=== PATIENT | female | born 1950 | race Caucasian/White ===

== ENCOUNTER → 2023-12-14 06:29 | Outpatient (REF) | payer OTHER, SELFPAY | LOC: HWRAD 06:29 | PROVIDERS: ATTENDING PHYSICIAN Family Medicine | DX: R10.11 Right upper quadrant pain (principal) | CPT/HCPCS: 76700 ==

== ENCOUNTER → 2023-12-31 11:02 | Outpatient (REF) | payer OTHER, SELFPAY | LOC: HWRAD 11:02 | PROVIDERS: ATTENDING PHYSICIAN Family Medicine | DX: R10.11 Right upper quadrant pain (principal) | CPT/HCPCS: 74177; Q9967 ==

== ENCOUNTER → 2024-05-26 10:50 | Outpatient (REF) | payer OTHER, SELFPAY | LOC: RAD 10:50 | PROVIDERS: ATTENDING PHYSICIAN Family Medicine | DX: R09.89 Other specified symptoms and signs involving the circulatory and respiratory systems (principal); Z01.818 Encounter for other preprocedural examination; H25.11 Age-related nuclear cataract, right eye; E11.69 Type 2 diabetes mellitus with other specified complication; E78.5 Hyperlipidemia, unspecified; E55.9 Vitamin D deficiency, unspecified; I10 Essential (primary) hypertension; R91.8 Other nonspecific abnormal finding of lung field | CPT/HCPCS: 93880 ==

== ENCOUNTER → 2024-05-30 09:58 | Outpatient (REF) | payer OTHER, SELFPAY | LOC: HWRAD 09:58 | PROVIDERS: ATTENDING PHYSICIAN Family Medicine | DX: Z87.891 Personal history of nicotine dependence (principal) | CPT/HCPCS: 71271 ==

== ENCOUNTER → 2024-08-15 10:56 | Outpatient (REF) | payer OTHER, SELFPAY | LOC: HWWDC 10:56 | PROVIDERS: ATTENDING PHYSICIAN Family Medicine | DX: Z12.31 Encounter for screening mammogram for malignant neoplasm of breast (principal) | CPT/HCPCS: 77063; 77067 ==

== ENCOUNTER → 2024-08-24 10:05 | Outpatient (REF) | payer OTHER, SELFPAY | LOC: RAD 10:05 | PROVIDERS: ATTENDING PHYSICIAN Emergency Medicine; FAMILY PHYSICIAN Family Medicine | DX: J06.9 Acute upper respiratory infection, unspecified (principal) | CPT/HCPCS: 71046 ==

== ENCOUNTER → 2024-11-30 07:59 | Outpatient (REF) | payer OTHER, SELFPAY | LOC: HWRAD 07:59 | PROVIDERS: ATTENDING PHYSICIAN Obstetrics & Gynecology; FAMILY PHYSICIAN Family Medicine | DX: N95.0 Postmenopausal bleeding (principal) | CPT/HCPCS: 76830; 76856 ==

== ENCOUNTER 2024-12-05 06:21 | Day surgery (SDC) | payer OTHER, SELFPAY ==
[2024-12-05 08:45] LABS: Glucose - Point of Care 105 mg/dl (70-99)
== END 2024-12-05 10:15 | disposition home or self-care (01) ==
LOC: GI 06:21
PROVIDERS: ATTENDING PHYSICIAN Surgery
DX: Z12.11 Encounter for screening for malignant neoplasm of colon (principal); K57.30 Diverticulosis of large intestine without perforation or abscess without bleeding; D12.4 Benign neoplasm of descending colon; D12.3 Benign neoplasm of transverse colon; K63.5 Polyp of colon; Z86.0100 Personal history of colon polyps, unspecified
CPT/HCPCS: 45385; 45380; 88305; 82962

== ENCOUNTER 2025-03-27 17:08 | Emergency (ER) | payer OTHER, SELFPAY ==
[2025-03-27] VITALS (8 sets, daily range): BP systolic 76–146; BP diastolic 54–74; PULSE 66–76; BMI 23.5
[2025-03-27 17:23] LABS: Hematocrit 41.2 % (37.0-47.0); Hemoglobin 14.1 g/dL (12.0-16.0); Mean Corp Hgb Conc. 34.2 g/dL (33.0-37.0); Mean Corpuscular Volume 89.4 fL (81.0-99.0); Nucleated Red Blood Cells % 0 %; Platelet Count 243 10^3/uL (130-400); Red Cell Dist. Width 13.3 % (11.5-14.5)
[2025-03-27 17:45] LABS: ALT (SGPT) 15 U/L (0-35); AST (SGOT) 20 U/L (14-36); Albumin 4.1 g/dl (3.5-5.0); Alkaline Phosphatase 55 U/L (38-126); Blood Urea Nitrogen 10 mg/dl (7-17); Calcium 9.3 mg/dl (8.4-10.2); Carbon Dioxide 25 mmol/L (22-30); Chloride 103 mmol/L (98-107); Glucose 135 mg/dl (70-99); Potassium 4.1 mmol/L (3.5-5.1); Sodium 134 mmol/L (135-145); Total Protein 6.7 g/dl (6.3-8.2); eGFR > 60.00
[2025-03-27 19:17] LABS: Lipase 321 U/L (23-300)
[2025-03-27 19:22] LABS: Urine Character Clear (Clear)
[2025-03-27] MEDS: NSS 1000 IV ×2 (19:44→21:33)
--- NOTE | 2025-03-27 22:49 | ED.GENMED ---
History of Present Illness
General
Chief Complaint: Abdominal Symptoms
Source: patient
Exam Limitations: none
Time Seen by Provider: 03/27/25 18:25
Nursing documentation reviewed up to this point in time: agreed with
History of Present Illness
History of Present Illness:
Patient to ED [facility] complaint of weakness, nausea, diarrhea. Symptoms startedyesterday. She denies fever/chills. Took immodium today and has had no further episodes of diarrhea. Denies abd. pain. Brought to ED by spouse
Past History
Past History
ED Past Medical History: GERD, HTN and Hypercholesterolemia
ED Past Surgical History: Other (hernia surgery, right facial bony tumor removal)
Social History
Tobacco: Former smoker
Alcohol: Occasional
Drug: None
Personal:
Living: with family
Employment: Employed
Family History
Family History: CAD
Review of Systems
Review of Systems
Allergies reviewed?: Yes
All Other Systems: ROS reviewed and negative except as documented in HPI and ROS
Constitutional: Reports no symptoms
EENT: Reports no symptoms
Respiratory: Reports no symptoms
Cardiac: Reports no symptoms
ABD/GI: Reports nausea and diarrhea
: Reports no symptoms
Musculoskeletal: Reports no symptoms
Skin: Reports no symptoms
Neurological: Reports no symptoms
Psychiatric: Reports no symptoms
Phy Exam
General Physical Exam
General Presentation: well appearing and no apparent distress
General age: appears stated age
General Skin: warm and dry
General Habitus: normal
Cardiovascular Exam
Cardiovascular Exam: regular rate/rhythm and no edema
Gastrointestinal Exam
Gastrointestinal Exam: normal bowel sounds, non tender, soft, no organomegaly, non distended and no cva tenderness
Musculoskeletal Exam
Musculoskeletal Exam: full ROM
Skin Exam
Skin Exam: normal color, warm/dry and no rash
Psychiatric Exam
Psychiatric Exam: normal mood/affect
Course
Orders/Labs/Results
Orders:
Orders
03/27/25 17:16
Complete Blood Count/With Diff Urgent
Comprehensive Metabolic Panel Urgent
Lipase Urgent
Comment: ADDON
03/27/25 18:45
Add On- LAB Urgent
Tests Added?: lipase
Orthostatic VS- Treatment ONCE
03/27/25 19:12
Urinalysis Reflex To Culture Urgent
Date Specimen was Collected: 03/27/25
Time Specimen was Collected: 19:11
03/27/25 19:37
0.9% Sodium Chloride 1000 ml [Nss] 1,000 ml IV BOLUS
03/27/25 21:15
0.9% Sodium Chloride 1000 ml [Nss] 1,000 ml IV BOLUS
Abnormal Lab Results
03/27/25
17:16
Absolute Monos (auto) 0.8 H 10^3/uL
(0.1-0.6)
Absolute Eos (auto) 1.3 H 10^3/uL
(0-0.7)
Eosinophils % 12.1 H %
(0-6)
Sodium 134 L mmol/L
(135-145)
Glucose 135 H mg/dl
(70-99)
Lipase 321 H U/L
(23-300)
03/27/25 17:16
03/27/25 17:16
Vital Signs
Initial and Last Documented VS:
Initial Vital Signs
Temp Pulse Resp BP Pulse Ox
98.3 F 76 18 146/72 96
03/27/25 17:10 03/27/25 17:10 03/27/25 17:10 03/27/25 17:10 03/27/25 17:10
Last Documented Vital Signs
Temp Pulse Resp BP Pulse Ox
98.3 F 80 20 118/74 100
03/27/25 17:10 03/27/25 22:04 03/27/25 22:04 03/27/25 22:04 03/27/25 22:04
*Radiology
Radiology exam reviewed: radiology read reviewed
*Pulse Oximetry
SaO2: 100
Oxygen Mode of Delivery: Room air
Patient hypoxic: no
*Critical Care Note
Total Time (30-74mins, 75-104mins- exclusive of procedures): Not Applicable
Update Note
Update Note:
Patient to ED with report of nausea and diarhea x 24 hours. Took immodium today and has had no further episodes of diarrhea. No abdominal pain. Labs reviewed, no concerning findings. BP low in ED. Given 2LNSS total in ED with resolution of
hypotension, SHe is tolerating po fluids, crackers in ED, WIll discharge home, close followup with PCP. Given instructions on s/s toreturn to ED and she is agreeable to plan.
ED Attending Note
-
Portions of this chart may have been created with voice recognition software.� Occasional wrong word or��sound alike� substitutions may have occurred due to the inherent limitations of voice recognition software.
Discharge Plan
Departure
Patient Disposition: Home (Routine Discharge)
Date of Disposition: 03/27/25
Time of Disposition: 22:29
Patient with high blood pressure during this ER visit?: No
Condition: Good
Covid-19: Not Applicable
Discharge Problem:
Diarrhea in adult patient
Instructions: Diarrhea in teens and adults, Clear Liquid Diet, Dehydration, Adult (DC)
Prescriptions:
No Action
valacyclovir 500 MG tablet
250 mg PO DAILY
diazepam 5 MG tablet
5 mg PO PRN PRN (Reason: anxiety)
omeprazole 20 MG capsule,delayed release(DR/EC)
20 mg PO DAILY
metoprolol succinate [Toprol XL] 25 MG tablet extended release 24 hr
25 mg PO DAILY
rosuvastatin 20 MG tablet
20 mg PO DAILY
cholecalciferol (vitamin D3) 2,000 UNITS tablet
2,000 units PO DAILY
levobunolol 1 DROP drops
1 drp BOTH EYES HS
lorazepam 0.5 MG tablet
0.5 mg PO BIDPRN PRN (Reason: anxiety)
Referrals:
Moo Luque DO [Family Provider, Family Practice]
Activity Restrictions/Additional Instructions:
REturn to the emergency department immediately for fever/chills, vomiting, abdominal pain or any further concerns.
Interventions
Interventions:
*Risk Screen - Suicide Last Done: 03/27/25 17:10
*General Assessment Last Done: 03/27/25 17:10
*Neglect/Abuse Screening Last Done: 03/27/25 17:10
*ED- Fall Risk Assessment Last Done: 03/27/25 19:00
*ED COVID-19 Vaccine History Last Done: 03/27/25 19:00
*Nursing Disposition Last Done: 03/27/25 22:47
IZ-Afdopy-Yplzuedakg Assessment Last Done: 03/27/25 19:01
Discharge Date and Time
Discharge Date/Time: 03/27/25 22:48
Print Language: ROMANIAN
== END 2025-03-27 22:48 | disposition home or self-care (01) ==
LOC: EMR 17:08
PROVIDERS: Nurse Practitioner; EMERGENCY PHYSICIAN Emergency Medicine; FAMILY PHYSICIAN Family Medicine
DX: R53.1 Weakness (principal); R11.0 Nausea; R19.7 Diarrhea, unspecified; K21.9 Gastro-esophageal reflux disease without esophagitis; I10 Essential (primary) hypertension; E78.00 Pure hypercholesterolemia, unspecified; Z82.49 Family history of ischemic heart disease and other diseases of the circulatory system; Z87.891 Personal history of nicotine dependence
CPT/HCPCS: 99282; 96360; 96361; 80053; 81003; 83690; 85025

== ENCOUNTER → 2025-05-04 08:43 | Outpatient (REF) | payer OTHER, SELFPAY | LOC: HWRAD 08:43 | PROVIDERS: ATTENDING PHYSICIAN Family Medicine | DX: R91.8 Other nonspecific abnormal finding of lung field (principal) | CPT/HCPCS: 71250 ==

== ENCOUNTER 2025-07-07 18:37 | Emergency (ER) | payer OTHER, SELFPAY ==
[2025-07-07 18:39] VITALS: BP 181/92
--- NOTE | 2025-07-07 19:06 | ED.GENMED ---
History of Present Illness
General
Chief Complaint: Fall
Source: patient and spouse
Exam Limitations: none
Time Seen by Provider: 07/07/25 18:50
Nursing documentation reviewed up to this point in time: agreed with
History of Present Illness
History of Present Illness:
Note:
CHIEF COMPLAINT(S)
Fall resulting in head injury and skin tear on the knee.
HISTORY OF PRESENT ILLNESS
The patient is a 74-year-old female who presented after a fall that occurred while she was outside, adjusting some lights. She states, 'I tripped over a cord outside and went down on the sidewalk.' During the fall, she sustained a significant
abrasion to her knee and reports hearing her head 'crack' upon impact with the ground. The patient describes the knee injury as a skin tear, which is significant but not amenable to sutures. She noted, 'It�s almost like a hole, isn�t it?' The
patient denies taking any anticoagulant medications. Concern arises for possible head injury given the reported audible crack and the mechanism of fall. The provider plans to perform a computed tomography (CT) scan of the head to assess for any
skull fracture or intracranial bleeding. The patient does not currently exhibit any overt neurological deficits as she was able to follow commands during the examination. The patient was provided an ice pack for the injury and it was noted that her
last tetanus shot might have been over five to ten years ago, and a booster is recommended if she cannot recall her last immunization.
PAST MEDICAL AND SURIGICAL HISTORY
The conversation did not reveal specific past medical or surgical history.
PHYSICAL EXAM
General: Alert, no acute distress.
Skin: Warm, dry. Knee with significant skin tear, described as a 'hole,' requiring bandaging; not suturable.
Head: Normocephalic, contusion right forehead.
Neck: Supple, trachea midline.
Eyes, Ears, Nose, Mouth, and Throat: Oral mucosa moist.
Cardiovascular: Normal peripheral perfusion, no edema.
Respiratory: Respirations are non-labored.
Gastrointestinal: Abdomen nondistended.
Back: Normal range of motion, normal alignment.
Musculoskeletal: Normal ROM, normal strength observed where possible despite injury.
Neurological: Alert and oriented to person, place, time, and situation, no focal neurological deficit observed although fall necessitates further neuroimaging due to head trauma.
Psychiatric: Cooperative, appropriate mood & affect.
PLAN
1. Obtain a CT scan of the head to evaluate for skull fractures or intracranial hemorrhage given the mechanism of injury and reported 'crack' sound.
2. Apply an ice pack to the knee and continue current bandaging method with waterproof band-aids.
3. Tetanus booster recommended due to uncertainty of last dose and presence of skin tear.
4. Follow up as needed based on CT scan results and wound healing progress.
DIFFERENTIAL DIAGNOSIS
The Differential Diagnosis includes, in no particular order and is not limited to:
1. Skull fracture
2. Subdural hematoma
3. Epidural hematoma
4. Intracerebral hemorrhage
5. Concussion
6. Contusion
7. Subarachnoid hemorrhage
8. Laceration of the scalp
9. Closed head injury
10. Mild traumatic brain injury
CARE-UPDATE
07/07/25 - 19:55
CT head shows chronic changes, no acute findings. Patient stable for discharge. Administered tetanus shot.
Disposition:
SUMMARY OF ENCOUNTER
The patient, a 74-year-old female, presented to the emergency department after sustaining a fall while adjusting lights outside, resulting in a right forehead contusion and a significant skin tear on her right knee. She reported hearing a 'crack'
sound when her head impacted the ground, raising concerns for potential head injury. A CT scan of the head was performed to rule out skull fracture or intracranial hemorrhage. The patient was alert, oriented, and showed no overt neurological
deficits.
DISPOSITION
The patient is stable for discharge.
ASSESSMENT
The patient sustained a fall resulting in a right forehead contusion and a skin tear on the right knee. The head CT showed no signs of intracranial hemorrhage or skull fracture, only chronic changes.
PLAN
1. Discharge home with instructions to follow up with primary care.
2. Advise immediate return to the emergency department if any concerning symptoms develop.
3. Tetanus booster was administered.
INDEPENDENT REVIEW OF LABS AND INTERPRETATION OF TESTS
- My independent interpretation of the CT head shows chronic changes, with no acute findings, indicating no signs of intracranial hemorrhage or skull fracture.
PATIENT EDUCATION AND COUNSELING
The patient was advised to monitor the injuries closely for any signs of infection or worsening symptoms and to seek immediate care if new symptoms, such as headaches, dizziness, or confusion, arise.
FOLLOW-UP INSTRUCTIONS
Please call the office immediately to schedule a follow-up visit with primary care.
MEDICATION RECONCILIATION
Administered a tetanus booster due to the presence of a skin tear and uncertainty about the last immunization.
MEDICAL DECISION MAKING
- Number and Complexity of Problems Addressed: Chronic conditions affecting care include potential concussion, head contusion, and knee skin tear. Differential diagnoses considered included skull fracture, subdural hematoma, epidural hematoma,
intracerebral hemorrhage, concussion, contusion, subarachnoid hemorrhage, laceration of the scalp, closed head injury, and mild traumatic brain injury.
- Data:
Category 1
My independent interpretation of the CT head shows chronic changes, with no acute findings of intracranial hemorrhage or skull fracture.
- Risk:
Consideration of Admission/Observation: Escalation of care including admission/observation was considered given the complexity and risk of the patients presenting complaint, exam findings, and underlying comorbidities. However, ultimately the
patient is safe for outpatient management with close follow-up. Reasoning: Work-up reassuring, does not reveal any acute life/organ threatening processes, patients symptoms well controlled upon reevaluation, reexamination is reassuring, vitals are
stable, patient agreeable with discharge, reliable for follow-up.
DIAGNOSIS
1. Contusion of the right forehead, initial encounter (S00.83XA)
2. Skin tear of right knee, initial encounter (S80.811A)
3. Fall on same level from slipping, tripping, and stumbling, initial encounter (W01.0XXA)
Past History
Past History
ED Past Medical History: GERD, HTN and Hypercholesterolemia
ED Past Surgical History: Other (hernia surgery, right facial bony tumor removal)
Social History
Tobacco: Former smoker
Alcohol: Occasional
Drug: None
Personal:
Living: with family
Employment: Employed
Family History
Family History: CAD
Phy Exam
Physical Exam
Physical Exam:
.
Course
Orders/Labs/Results
Orders:
Orders
07/07/25 18:56
CT Head W/o Iv Contrast Urgent
Comment:
Reason For Exam: fall, hit right forehead
Tetanus/Diphth/Acelpertussis [Adacel] 0.5 ml IM .ONCE ONE
Vital Signs
Initial and Last Documented VS:
Initial Vital Signs
Temp Pulse Resp BP Pulse Ox
97.6 F 90 16 181/92 95
07/07/25 18:39 07/07/25 18:39 07/07/25 18:39 07/07/25 18:39 07/07/25 18:39
Last Documented Vital Signs
Temp Pulse Resp BP Pulse Ox
97.6 F 90 16 181/92 95
07/07/25 18:39 07/07/25 18:39 07/07/25 18:39 07/07/25 18:39 07/07/25 19:06
*Pulse Oximetry
SaO2: 95
Oxygen Mode of Delivery: Room air
Patient hypoxic: no
*Critical Care Note
Total Time (30-74mins, 75-104mins- exclusive of procedures): Not Applicable
ED Attending Note
-
Portions of this chart may have been created with voice recognition software.� Occasional wrong word or��sound alike� substitutions may have occurred due to the inherent limitations of voice recognition software.
Discharge Plan
Departure
Patient Disposition: Home (Routine Discharge)
Date of Disposition: 07/07/25
Time of Disposition: 19:56
Patient with high blood pressure during this ER visit?: Yes
Condition: Good
Discharge Problem:
Contusion of head, Skin tear, Fall
Instructions: Head Injury in Adults (DC), Preventing falls in adults, Skin Abrasions (DC), BLOOD PRESSURE
Prescriptions:
No Action
valacyclovir 500 MG tablet
250 mg PO DAILY
diazepam 5 MG tablet
5 mg PO PRN PRN (Reason: anxiety)
omeprazole 20 MG capsule,delayed release(DR/EC)
20 mg PO DAILY
metoprolol succinate [Toprol XL] 25 MG tablet extended release 24 hr
25 mg PO DAILY
rosuvastatin 20 MG tablet
20 mg PO DAILY
cholecalciferol (vitamin D3) 2,000 UNITS tablet
2,000 units PO DAILY
levobunolol 1 DROP drops
1 drp BOTH EYES HS
lorazepam 0.5 MG tablet
0.5 mg PO BIDPRN PRN (Reason: anxiety)
Referrals:
Moo Luque DO [Family Provider, Family Practice] - Call in 1-3 days for appt
Interventions
Interventions:
*Risk Screen - Suicide Last Done: 07/07/25 19:00
*General Assessment Last Done: 07/07/25 19:30
*Neglect/Abuse Screening Last Done: 07/07/25 19:00
*ED- Fall Risk Assessment Last Done: 07/07/25 19:00
*ED COVID-19 Vaccine History Last Done: 07/07/25 19:00
*ED Influenza Vaccine History Last Done: 07/07/25 19:00
ED-Musculoskeletal Assessment Last Done: 07/07/25 18:58
ED- Neurological Assessment Last Done: 07/07/25 18:58
ED-Skin Assessment Last Done: 07/07/25 18:58
Discharge Date and Time
Print Language: CITIZEN OF [place]
[2025-07-07] MEDS: ADACEL 0.5 ML IM (19:26)
[2025-07-07 19:31] VITALS: BMI 25.2
[2025-07-07 20:04] VITALS: BP 120/85
== END 2025-07-07 20:06 | disposition home or self-care (01) ==
LOC: EMR 18:37
PROVIDERS: EMERGENCY PHYSICIAN Emergency Medicine; FAMILY PHYSICIAN Family Medicine
DX: S00.83XA Contusion of other part of head, initial encounter (principal); S81.011A Laceration without foreign body, right knee, initial encounter; W18.09XA Striking against other object with subsequent fall, initial encounter; Y92.480 Sidewalk as the place of occurrence of the external cause; E78.00 Pure hypercholesterolemia, unspecified; I10 Essential (primary) hypertension; Z23 Encounter for immunization; Z87.891 Personal history of nicotine dependence
CPT/HCPCS: 90471; 99284; 70450; 90715